=== PATIENT | female | born 1940 | race Caucasian/White ===

== ENCOUNTER 2016-09-15 15:15 | Outpatient (CLI) | payer MEDICARE, OTHER | END 2016-09-15 15:16 | disposition home or self-care (01) | DX: R41.3 Other amnesia (principal); N39.0 Urinary tract infection, site not specified ==

== ENCOUNTER 2016-09-16 15:32 | Outpatient (CLI) | payer MEDICARE, OTHER | END 2016-09-16 15:33 | disposition home or self-care (01) | DX: R41.3 Other amnesia (principal); I63.9 Cerebral infarction, unspecified; I67.82 Cerebral ischemia ==

== ENCOUNTER 2016-09-24 07:54 | Outpatient (CLI) | payer MEDICARE, OTHER | END 2016-09-24 07:55 | disposition home or self-care (01) | DX: I63.9 Cerebral infarction, unspecified (principal) ==

== ENCOUNTER 2016-09-24 11:17 | Outpatient (CLI) | payer MEDICARE, OTHER | END 2016-09-24 11:18 | disposition home or self-care (01) | DX: I63.9 Cerebral infarction, unspecified (principal) ==

== ENCOUNTER 2016-09-25 09:17 | Outpatient (CLI) | payer MEDICARE, OTHER | END 2016-09-25 09:18 | disposition home or self-care (01) | DX: I63.9 Cerebral infarction, unspecified (principal) ==

== ENCOUNTER 2016-12-26 09:13 | Outpatient (CLI) | payer MEDICARE, OTHER ==
[2016-12-26 08:07] LABS: CREATININE 0.7 mg/dL (0.4-1.0)
[2016-12-26] MEDS ORDERED: GADOBUTROL 10 MMOL/10 ML VIAL IVP ONE (10:58)
--- NOTE | 2016-12-26 12:48 | MRI Report ---
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 MR angiography has been requested in further workup of potential etio logy for the infarctions. TECHNIQUE: 1. T1 fat saturated axial sequence. 2. 2-D yrnw-ek-qkxjyq MR angiography. 3. 3-D gadolinium enhanced MRA angiography. 8 cc IV Gadavist. Significant arterial stenoses will be assessed using NASCET type measurements. COMPARISON: None. FINDINGS: There is normal branching of the aortic arch. No stenoses are identified in the first order , supra-aortic arteries. Right carotid artery: There is minimal irregularity in contour of distal common carotid artery, probably from atherosclerot ic plaque. No associated stenosis. Extracranial right ICA and right ECA appear widely patent. Left carotid artery: There is stenosis at the origin of the left ECA, probably from atherosclerotic disease. This appears to represent greater than 50% NASCET type stenosis and certainly could be hemodynamically significant . The extracranial left ICA appears widely patent throughout. Right vertebral artery: Patent from origin to the vertebrobasilar junction. No focal stenosis is demonstrated. Left vertebral artery: Dominant left vertebral artery appears widely patent from its origin to the vertebrobasilar junction without focal stenosis. There is some irregularity in the contour for the vertical limb of the V3 seg ment (see image #3 of series 603). The artery has a somewhat beaded appearance suggesting the possibi lity of fibromuscular dysplasia. However, no evidence of FMD in the right vertebral artery or either carotid artery. IMPRESSION: 1. There appears be relatively severe stenosis at the origin of the left external carotid artery, pro bably from atherosclerotic disease. The extracranial carotid arteries are otherwise unremarkable. 2. Irregularity in luminal contour for vertical limb of V3 segment, left vertebral artery. This sugge sts the possibility of fibromuscular dysplasia. No significant associated stenosis and no evidence of complicating dissection. The extracranial vertebral arteries are otherwise unremarkable. Referring Provider Line: [phone] SITE ID: [id number]
--- NOTE | 2016-12-26 12:48 | MRI Report ---
MR angiogram head without contrast INDICATION: 76-year-old female with history of infarctions in left occipital lobe and left parahippoc ampal gyrus in September of this year. MR angiography has been requested in further assessment. TECHNIQUE: 3-D azww-ia-csyjyl MR angiography. COMPARISON: None. FINDINGS: The patient had difficulty holding still for this examination. There is image degradation from patien t motion that decreases the diagnostic quality of the study. The internal carotid arteries appear widely patent bilaterally. No obvious ICA aneurysm is demonstrat ed. The A1 segments of the anterior cerebral arteries are codominant. There probably is a tiny anteri or communicating artery. There appears be good flow related enhancement in the imaged anterior cerebr al artery branches. The middle cerebral arteries are unremarkable. No aneurysm is demonstrated and there is no evidence o f occlusion or hemodynamically significant stenosis affecting main branches of either MCA. The vertebral arteries and left PICA are patent. No right PICA is seen. There is a large right AICA t hat appears to be supplying the right PICA territory (normal anatomical variant). The basilar artery, superior cerebellar arteries and posterior cerebral arteries appear patent. No obvious stenosis is i dentified in main branches of the left [employer]. Neither posterior communicating artery is identified with certainty. No aneurysms are seen arising from the basilar artery trunk or apex. IMPRESSION: 1. Motion limited examination. 2. However, allowing for the limitations of this study, no pathology is demonstrated. In particular, the left posterior cerebral artery appears patent without obvious stenosis. Referring Provider Line: [phone] SITE ID: [id number]
== END 2016-12-26 09:14 | disposition home or self-care (01) ==
LOC: DI 09:13
PROVIDERS: ATTEND Specialist
DX: I65.22 Occlusion and stenosis of left carotid artery (principal); I69.90 Unspecified sequelae of unspecified cerebrovascular disease; I77.89 Other specified disorders of arteries and arterioles
CPT/HCPCS: 36415; 70544; 70549; 82565; A9585

== ENCOUNTER 2017-01-12 07:56 | Outpatient (CLI) | payer MEDICARE, OTHER ==
[2017-01-12 10:48] LABS: ALBUMIN/GLOBULIN RATIO 1.6 (1.0-2.2); BILIRUBIN,TOTAL 1.3 mg/dL (0.2-1.0); BUN - BLOOD UREA NITROGEN 15 mg/dL (6-20); CALCIUM 9.1 mg/dL (8.5-10.3); CARBON DIOXIDE - CO2 27 mmol/L (21-32); CHLORIDE 106 mmol/L (101-111); CHOLESTEROL 172 mg/dL; CREATININE 0.8 mg/dL (0.4-1.0); GFR - MDRD 70 (>89); GLUCOSE 128 mg/dL (70-100); HDL CHOLESTEROL 85 mg/dL; LDL/HDL RATIO 0.8 (<4.4); POTASSIUM 4.1 mmol/L (3.5-5.0); SODIUM 140 mmol/L (135-145); TRIGLYCERIDES 76 mg/dL; VLDL CHOLESTEROL 15 mg/dL
== END 2017-01-12 07:57 | disposition home or self-care (01) ==
LOC: LAB 07:56
PROVIDERS: ATTEND Physician Assistant Medical
DX: I63.9 Cerebral infarction, unspecified (principal)
CPT/HCPCS: 36415; 80053; 80061

== ENCOUNTER 2017-03-23 14:20 | Outpatient (CLI) | payer MEDICARE, OTHER ==
[2017-03-23 19:19] LABS: ALBUMIN/GLOBULIN RATIO 1.8 (1.0-2.2); BILIRUBIN,TOTAL 0.9 mg/dL (0.2-1.0); BUN - BLOOD UREA NITROGEN 16 mg/dL (6-20); CALCIUM 9.3 mg/dL (8.5-10.3); CARBON DIOXIDE - CO2 28 mmol/L (21-32); CHLORIDE 103 mmol/L (101-111); CHOL/HDL RATIO 1.7 (<4.4); CHOLESTEROL 152 mg/dL; CREATININE 0.7 mg/dL (0.4-1.0); GFR - MDRD 81 (>89); GLUCOSE 103 mg/dL (70-100); HDL CHOLESTEROL 90 mg/dL; LDL/HDL RATIO 0.5 (<4.4); POTASSIUM 3.9 mmol/L (3.5-5.0); SODIUM 140 mmol/L (135-145); TRIGLYCERIDES 97 mg/dL; VLDL CHOLESTEROL 19 mg/dL
[2017-03-23 19:48] LABS: HEMOGLOBIN A1C 0.56 g/dL
== END 2017-03-23 14:21 | disposition home or self-care (01) ==
LOC: LAB.WCP 14:20
PROVIDERS: ATTEND Physician Assistant Medical
DX: R73.9 Hyperglycemia, unspecified (principal); I63.9 Cerebral infarction, unspecified
CPT/HCPCS: 36415; 80048; 80053; 80061; 83036

== ENCOUNTER 2017-05-11 13:40 | Outpatient (CLI) | payer MEDICARE, OTHER ==
--- NOTE | 2017-05-13 17:41 | Mammography Report ---
DIGITAL SCREENING LEFT MAMMOGRAM: 05/11/2017 CLINICAL INDICATION: A 76-year-old with personal history of right breast cancer status post mastecto my. TECHNIQUE: Left CC, MLO, laterally exaggerated craniocaudal views were obtained. COMPARISON: 05/2015, 03/2014, 03/2013, 04/2011, 04/2010. The left breast again demonstrates scattered fibroglandular densities. A few coarse, typically benig n calcifications are present. No suspicious masses, clustered microcalcifications, or regions of arc hitectural distortion are identified. IMPRESSION: BENIGN FINDINGS. RECOMMENDATION: ROUTINE ANNUAL SCREENING UNLESS OTHERWISE CLINICALLY INDICATED. BIRADS CATEGORY: 2, BENIGN FINDINGS. STANDARD QUALIFYING STATEMENTS 1. This examination was reviewed with the aid of Computed-Aided Detection (CAD). 2. A negative or benign imaging report should not delay biopsy if clinically suspicious findings are present. Consider surgical consultation if warranted. More than 5% of cancers are not identified b y imaging. 3. Dense breasts may obscure an underlying neoplasm. JOB #: [id number] EXT JOB #:[id number]
== END 2017-05-11 13:41 | disposition home or self-care (01) ==
LOC: DI.N 13:40
PROVIDERS: ATTEND Physician Assistant Medical
DX: Z12.31 Encounter for screening mammogram for malignant neoplasm of breast (principal); Z85.3 Personal history of malignant neoplasm of breast; Z90.11 Acquired absence of right breast and nipple

== ENCOUNTER 2017-09-29 07:28 | Outpatient (CLI) | payer MEDICARE, OTHER ==
[2017-09-29 13:11] LABS: ALBUMIN 4.4 g/dL (3.2-5.5); ALBUMIN/GLOBULIN RATIO 1.7 (1.0-2.2); ALKALINE PHOSPHATASE 65 IU/L (42-121); ALT ALANINE AMINOTRANSFERASE 15 IU/L (10-60); AST ASPARTATE AMINOTRANSFERASE 19 IU/L (10-42); BILIRUBIN,TOTAL 0.8 mg/dL (0.2-1.0); BUN - BLOOD UREA NITROGEN 12 mg/dL (6-20); CALCIUM 8.8 mg/dL (8.5-10.3); CARBON DIOXIDE - CO2 27 mmol/L (21-32); CHLORIDE 103 mmol/L (101-111); CHOLESTEROL 118 mg/dL; CREATININE 0.7 mg/dL (0.4-1.0); GFR - MDRD 81 (>89); GLUCOSE 113 mg/dL (70-100); HDL CHOLESTEROL 58 mg/dL; LDL CHOLESTEROL,CALCULATED 48 mg/dL; LDL/HDL RATIO 0.8 (<4.4); SODIUM 135 mmol/L (135-145); VLDL CHOLESTEROL 12 mg/dL
== END 2017-09-29 07:29 | disposition home or self-care (01) ==
LOC: LAB.WCP 07:28
PROVIDERS: ATTEND Physician Assistant Medical
DX: I63.9 Cerebral infarction, unspecified (principal)
CPT/HCPCS: 36415; 80053; 80061; 83721

== ENCOUNTER 2017-12-08 06:30 | Outpatient (CLI) | payer MEDICARE, OTHER | END 2017-12-08 06:31 | disposition home or self-care (01) | LOC: LAB.WCP 06:30 | PROVIDERS: ATTEND Family Medicine | DX: R19.7 Diarrhea, unspecified (principal) | CPT/HCPCS: 81599; 83630; 87045; 87046; 87493 ==

== ENCOUNTER 2017-12-09 08:00 | Outpatient (CLI) | payer MEDICARE, OTHER | END 2017-12-09 08:01 | disposition home or self-care (01) | LOC: LAB.WCP 08:00 | PROVIDERS: ATTEND Family Medicine | DX: R19.7 Diarrhea, unspecified (principal) | CPT/HCPCS: 81599; 87045; 87046; 87329 ==

== ENCOUNTER 2017-12-21 12:46 | Outpatient (CLI) | payer MEDICARE, OTHER ==
[2017-12-21] MEDS ORDERED: GADOBUTROL 10 MMOL/10 ML VIAL ONE (13:06)
[2017-12-21] MEDS ORDERED: GADOBUTROL 10 MMOL/10 ML VIAL IVP ONE (13:49)
--- NOTE | 2017-12-22 07:47 | MRI Report ---
Procedure Date: 12/21/2017 Accession Number: [id number] / [id number] Procedure: MRI - Brain W/WO CPT Code: FULL RESULT: EXAM: MRI BRAIN WITHOUT AND WITH CONTRAST EXAM DATE: 12/21/2017 02:00 PM. CLINICAL HISTORY: History of memory deficit and CVA. History also of TIA. COMPARISON: 09/16/2016. TECHNIQUE: Multiplanar, multisequence T1-weighted and fluid-sensitive MR sequences of the brain were performed. Sequences optimized for routine evaluation. Other: None. IV Contrast: Without and with 8 mL Gadavist. FINDINGS: Brain Volume: Stable kcrh-yx-ljnsdtop generalized age-related cerebral volume loss. Parenchyma: No restricted diffusion to suggest acute or recent ischemic infarct. No cerebral hemorrhage, mass effect, midline shift or abnormal subdural fluid collection. Contrast opacification of the major dural venous sinuses is present as expected. No intracranial enhancing or space occupying mass or nodule. Stable mild multifocal chronic cerebral white matter disease consistent with small vessel ischemic changes. A small amount of encephalomalacia and gliosis is now present in the inferomedial left temporal lobe and more posterior temporal-occipital white matter where infarct was present on the previous study. Stable chronic very small old inferior left cerebellar infarct. Ventricles/Cisterns: Stable mild ventriculomegaly consistent with cerebral volume loss, no evidence for developing hydrocephalus. Orbits: Symmetric and unremarkable. Sella Turcica: Stable appearance, concave superior pituitary surface, no evidence for pituitary region enhancing or space-occupying mass. IAC: Symmetric and unremarkable. Vasculature: Normal signal flow void is seen in the major arterial structures at the skull base. The dural sinuses are patent and enhance normally. Sinuses: Stable mild nonspecific potentially chronic paranasal sinus mucosal thickening. Bones: No focal pathologic appearing marrow signal changes in the skull or clivus. Other: None. IMPRESSION: 1. No new or acute intracranial abnormality. 2. No enhancing mass. 3. Chronic appearing sequelae of multifocal ischemic brain disease. RADIA
== END 2017-12-21 12:47 | disposition home or self-care (01) ==
LOC: DI 12:46
PROVIDERS: ATTEND Family Medicine
DX: I63.9 Cerebral infarction, unspecified (principal); R41.3 Other amnesia; I67.82 Cerebral ischemia
CPT/HCPCS: 70553; 93306; A9585

== ENCOUNTER 2018-11-16 07:26 | Outpatient (CLI) | payer MEDICARE, OTHER ==
[2018-11-16 12:33] LABS: ALBUMIN 4.2 g/dL (3.2-5.5); ALBUMIN/GLOBULIN RATIO 1.6 (1.0-2.2); ALKALINE PHOSPHATASE 65 IU/L (42-121); ALT ALANINE AMINOTRANSFERASE 19 IU/L (10-60); AST ASPARTATE AMINOTRANSFERASE 18 IU/L (10-42); BILIRUBIN,TOTAL 1.1 mg/dL (0.2-1.0); BUN - BLOOD UREA NITROGEN 16 mg/dL (6-20); CALCIUM 8.9 mg/dL (8.5-10.3); CARBON DIOXIDE - CO2 25 mmol/L (21-32); CHLORIDE 103 mmol/L (101-111); CHOL/HDL RATIO 1.8 (<4.4); CHOLESTEROL 156 mg/dL; CREATININE 0.7 mg/dL (0.4-1.0); GFR - MDRD 81 (>89); GLUCOSE 153 mg/dL (70-100); HDL CHOLESTEROL 86 mg/dL; LDL CHOLESTEROL,CALCULATED 59 mg/dL; LDL/HDL RATIO 0.7 (<4.4); SODIUM 138 mmol/L (135-145); TOTAL PROTEIN 6.8 g/dL (6.7-8.2); VLDL CHOLESTEROL 11 mg/dL
[2018-11-16 12:35] LABS: BASOPHILS % (AUTO) 0.8 %; EOSINOPHILS # (AUTO) 0.2 10^3/uL (0.0-0.7); EOSINOPHILS % (AUTO) 3.8 %; HGB - HEMOGLOBIN 14.5 g/dL (12.0-16.0); LYMPHOCYTES # (AUTO) 1.1 10^3/uL (1.5-3.5); LYMPHOCYTES % (AUTO) 22.6 %; MEAN CORPUSCULAR HEMOGLOBIN 29.9 pg (27.0-31.0); MEAN CORPUSCULAR HGB CONC 33.6 g/dL (32.0-36.0); MEAN PLATELET VOLUME 9.1 fL (7.9-10.8); MONOCYTES # (AUTO) 0.3 10^3/uL (0.0-1.0); MONOCYTES % (AUTO) 6.7 %; NEUTROPHILS # (AUTO) 3.3 10^3/uL (1.5-6.6); NEUTROPHILS % (AUTO) 66.1 %; PLT - PLATELET COUNT 176 10^3/uL (130-450); RED BLOOD COUNT 4.85 10^6/uL (4.20-5.40); RED CELL DISTRIBUTION WIDTH 13.2 % (12.0-15.0)
[2018-11-19 07:20] LABS: HB2 TOTAL 15.8 g/dL; HEMOGLOBIN A1C 0.71 g/dL; HEMOGLOBIN A1C % 6.3 % (4.6-6.2)
== END 2018-11-16 07:27 | disposition home or self-care (01) ==
LOC: LAB.WCP 07:26
PROVIDERS: ATTEND Physician Assistant Medical
DX: I63.9 Cerebral infarction, unspecified (principal); R73.9 Hyperglycemia, unspecified
CPT/HCPCS: 36415; 80053; 80061; 83036; 83721; 85025

== ENCOUNTER 2018-12-02 08:00 | Outpatient (CLI) | payer MEDICARE, OTHER ==
[2018-12-02 19:55] LABS: HB2 TOTAL 13.8 g/dL; HEMOGLOBIN A1C 0.58 g/dL
== END 2018-12-02 23:59 | disposition home or self-care (01) ==
LOC: LAB.WCP 08:00
PROVIDERS: ATTEND Physician Assistant Medical
DX: R73.9 Hyperglycemia, unspecified (principal)
CPT/HCPCS: 36415; 83036

== ENCOUNTER 2018-12-28 13:24 | Outpatient (CLI) | payer MEDICARE, OTHER ==
--- NOTE | 2018-12-29 08:24 | Mammography Report ---
Reason: SCREENING MAMMO Procedure Date: 12/28/2018 Accession Number: [id number] / [id number] Procedure: MGN - Screening Mammo Dig LT CPT Code: FULL RESULT: EXAM: Screening Mammo Dig LT DATE: 12/28/2018 1:49 PM CLINICAL HISTORY: Screening examination. Personal history of breast cancer status post right mastectomy in 1998. Family history of breast cancer in a maternal grandmother at the age of 60. TECHNIQUE: (L) - Left CC and MLO views were obtained. COMPARISON: 05/11/2017 through 03/21/2013. PARENCHYMAL PATTERN: (A) - The breast(s) demonstrate(s) scattered fibroglandular densities. FINDINGS: There are no suspicious masses, calcifications, or areas of distortion. IMPRESSION: Negative examination. BI-RADS category 1. RECOMMENDATION: (ANNUAL) - Recommend routine annual screening mammography. BI-RADS CATEGORY: (1) - Negative. STANDARD QUALIFYING STATEMENTS: 1. This examination was not reviewed with the aid of Computer-Aided Detection (CAD). 2. A negative or benign imaging report should not preclude biopsy if clinically suspicious findings are present. 3. Dense breasts may obscure an underlying neoplasm. 4. This examination was reviewed without the aid of 3D breast imaging (tomosynthesis).
== END 2018-12-28 13:25 | disposition home or self-care (01) ==
LOC: DI.N 13:24
DX: Z12.31 Encounter for screening mammogram for malignant neoplasm of breast (principal); Z85.3 Personal history of malignant neoplasm of breast; Z90.11 Acquired absence of right breast and nipple; Z80.3 Family history of malignant neoplasm of breast

== ENCOUNTER 2019-10-18 07:22 | Outpatient (CLI) | payer MEDICARE, OTHER ==
[2019-10-18 13:35] LABS: BUN - BLOOD UREA NITROGEN 19 mg/dL (6-20); CALCIUM 8.2 mg/dL (8.5-10.3); CARBON DIOXIDE - CO2 22 mmol/L (21-32); CHLORIDE 108 mmol/L (101-111); CHOLESTEROL 129 mg/dL; CREATININE 0.8 mg/dL (0.4-1.0); GLUCOSE 140 mg/dL (70-100); HB2 TOTAL 14.3 g/dL; HDL CHOLESTEROL 66 mg/dL; HEMOGLOBIN A1C 0.55 g/dL; HEMOGLOBIN A1C % 5.7 % (4.6-6.2); LDL CHOLESTEROL,CALCULATED 53 mg/dL; LDL/HDL RATIO 0.8 (<4.4); SODIUM 138 mmol/L (135-145); VLDL CHOLESTEROL 10 mg/dL
== END 2019-10-18 23:59 | disposition home or self-care (01) ==
LOC: LAB.WCP 07:22
PROVIDERS: ATTEND Physician Assistant Medical
DX: I10 Essential (primary) hypertension (principal); R73.9 Hyperglycemia, unspecified
CPT/HCPCS: 36415; 80048; 80061; 83036; 83721

== ENCOUNTER 2020-02-17 14:31 | Outpatient (CLI) | payer MEDICARE, OTHER ==
--- NOTE | 2020-02-22 10:01 | Mammography Report ---
UNILATERAL LEFT DIGITAL SCREENING MAMMOGRAM 3D/2D: 02/17/2020 CLINICAL: Routine screening. Comparison is made to exams dated: 12/28/2018 mammogram, 05/11/2017 mammogram, 03/29/2014 mammogram, and 06/22/2014 ultrasound - [facility]. There are scattered fibroglandular elements in left breast. No significant masses, calcifications, or other findings are seen in the breast. IMPRESSION: NEGATIVE There is no mammographic evidence of malignancy. A 1 year screening mammogram is recommended. This exam was interpreted at Station ID: [id number]. NOTE: For mammograms, a report in lay terms will be sent to the patient. Approximately 15% of breast malignancies will not be visualized mammographically. In the management of a palpable breast mass, a negative mammogram must not discourage biopsy of a clinically suspicious lesion. Electronically Signed By: Jai Amador M.D., jr/kyung:02/22/2020 09:37:32 ACR BI-RADS Category 1: Negative 3341F PARENCHYMAL PATTERN: (A) - The breast(s) demonstrate(s) scattered fibroglandular densities. BI-RADS CATEGORY: (1) - 1 RECOMMENDATION: (ANNUAL) - Recommend routine annual screening mammography. [id number] 1 year screening LATERALITY: (B)
== END 2020-02-17 14:32 | disposition home or self-care (01) ==
LOC: DI.N 14:31
DX: Z12.31 Encounter for screening mammogram for malignant neoplasm of breast (principal)
CPT/HCPCS: 77063

== ENCOUNTER 2020-04-09 08:00 | Outpatient (CLI) | payer MEDICARE, OTHER ==
[2020-04-09 13:05] LABS: ALBUMIN 4.2 g/dL (3.2-5.5); ALBUMIN/GLOBULIN RATIO 1.6 (1.0-2.2); ALKALINE PHOSPHATASE 58 IU/L (42-121); ALT ALANINE AMINOTRANSFERASE 18 IU/L (10-60); AST ASPARTATE AMINOTRANSFERASE 20 IU/L (10-42); BUN - BLOOD UREA NITROGEN < 5 mg/dL (6-20); CALCIUM 8.7 mg/dL (8.5-10.3); CARBON DIOXIDE - CO2 25 mmol/L (21-32); CHLORIDE 98 mmol/L (101-111); CHOL/HDL RATIO 1.8 (<4.4); CHOLESTEROL 137 mg/dL; CREATININE 0.6 mg/dL (0.4-1.0); GLUCOSE 137 mg/dL (70-100); HDL CHOLESTEROL 76 mg/dL; LDL CHOLESTEROL,CALCULATED 49 mg/dL; LDL/HDL RATIO 0.6 (<4.4); SODIUM 132 mmol/L (135-145); TOTAL PROTEIN 6.8 g/dL (6.7-8.2); VLDL CHOLESTEROL 12 mg/dL
[2020-04-09 13:18] LABS: HEMOGLOBIN A1c% 5.7 % (4.27-6.07)
== END 2020-04-09 23:59 | disposition home or self-care (01) ==
LOC: LAB.WCP 08:00
PROVIDERS: ATTEND Physician Assistant Medical
DX: R73.9 Hyperglycemia, unspecified (principal); I10 Essential (primary) hypertension
CPT/HCPCS: 36415; 80053; 80061; 83036; 83721

== ENCOUNTER 2020-04-19 12:11 | Outpatient (CLI) | payer MEDICARE, OTHER ==
--- NOTE | 2020-04-19 16:21 | DEXA Report ---
PROCEDURE: Dexa Spine and/or Hip INDICATIONS: POST MENOPAUSAL TECHNIQUE: Dual energy x-ray absorptiometry (DXA) was performed on a [employer] System. Regions measur ed are the AP Spine, femoral neck, and if needed forearm. COMPARISON: 12/10/2015. FINDINGS: Lumbar Spine: Bone Mineral Density 0.922 g/cm/cm,T score -2.1, osteopenia Left Hip: Bone Mineral Density 0.795 g/cm/cm,T score -1.7, osteopenia Left Femoral Neck: Bone Mineral Density 0.773 g/cm/cm, T score -1.9, osteopenia (T score greater or equal to -1.0: NORMAL) (T score from -1.1 to -2.4: OSTEOPENIA) (T score less than or equal to -2.5 to: OSTEOPOROSIS) Impression: Osteopenia. Bone marrow density has decreased 2.1% in the interval since prior exam. Patients with diagnosis of osteoporosis or osteopenia should have regular bone mineral density assess ment. For those eligible for Medicare, routine testing is allowed once every 2 years. Testing frequ ency can be increased for patients who have rapidly progressing disease or for those who are receivin g medical therapy to restore bone mass. Reviewed by: Ellen Benitez MD, PhD on 04/19/2020 4:19 PM PST Approved by: Ellen Benitez MD, PhD on 04/19/2020 4:19 PM PST Station ID: [id number]
== END 2020-04-19 12:12 | disposition home or self-care (01) ==
LOC: DI 12:11
PROVIDERS: ATTEND Physician Assistant Medical
DX: M85.89 Other specified disorders of bone density and structure, multiple sites (principal)
CPT/HCPCS: 77080

== ENCOUNTER 2020-10-19 08:00 | Outpatient (CLI) | payer MEDICARE, OTHER ==
[2020-10-19 12:29] LABS: BASOPHILS % (AUTO) 0.4 %; EOSINOPHILS # (AUTO) 0.2 10^3/uL (0.0-0.7); EOSINOPHILS % (AUTO) 3.3 %; HCT - HEMATOCRIT 40.6 % (37.0-47.0); HGB - HEMOGLOBIN 13.5 g/dL (12.0-16.0); LYMPHOCYTES # (AUTO) 1.1 10^3/uL (1.5-3.5); LYMPHOCYTES % (AUTO) 21.8 %; MEAN CORPUSCULAR HGB CONC 33.3 g/dL (32.0-36.0); MEAN CORPUSCULAR VOLUME 90.2 fL (81.0-99.0); MEAN PLATELET VOLUME 11.1 fL (7.9-10.8); MONOCYTES # (AUTO) 0.3 10^3/uL (0.0-1.0); MONOCYTES % (AUTO) 6.1 %; NEUTROPHILS # (AUTO) 3.3 10^3/uL (1.5-6.6); PLT - PLATELET COUNT 197 10^3/uL (130-450); RED CELL DISTRIBUTION WIDTH 12.4 % (12.0-15.0); WHITE BLOOD COUNT 4.9 x10^3/uL (4.8-10.8)
[2020-10-19 13:29] LABS: ALBUMIN 4.5 g/dL (3.2-5.5); ALKALINE PHOSPHATASE 41 IU/L (42-121); ALT ALANINE AMINOTRANSFERASE 16 IU/L (10-60); AST ASPARTATE AMINOTRANSFERASE 18 IU/L (10-42); BUN - BLOOD UREA NITROGEN 16 mg/dL (6-20); CALCIUM 9.2 mg/dL (8.5-10.3); CARBON DIOXIDE - CO2 26 mmol/L (21-32); CHLORIDE 104 mmol/L (101-111); CHOL/HDL RATIO 1.9 (<4.4); CHOLESTEROL 137 mg/dL; CREATININE 0.6 mg/dL (0.4-1.0); GFR - MDRD 96 (>89); GLUCOSE 146 mg/dL (70-100); HDL CHOLESTEROL 71 mg/dL; LDL CHOLESTEROL,CALCULATED 51 mg/dL; LDL/HDL RATIO 0.7 (<4.4); POTASSIUM 4.5 mmol/L (3.5-5.0); SODIUM 139 mmol/L (135-145); TOTAL PROTEIN 6.8 g/dL (6.7-8.2); TRIGLYCERIDES 76 mg/dL; VLDL CHOLESTEROL 15 mg/dL
[2020-10-19 21:01] LABS: ESTIMATED AVERAGE GLUCOSE 117 mg/dL (70-100); HEMOGLOBIN A1c% 5.7 % (4.27-6.07)
== END 2020-10-19 08:01 | disposition home or self-care (01) ==
LOC: LAB.WCP 08:00
PROVIDERS: ATTEND Physician Assistant Medical
DX: I63.9 Cerebral infarction, unspecified (principal); R73.9 Hyperglycemia, unspecified; I10 Essential (primary) hypertension
CPT/HCPCS: 36415; 80053; 80061; 83036; 83721; 85025

== ENCOUNTER 2021-02-13 14:49 | Outpatient (CLI) | payer MEDICARE, OTHER ==
--- NOTE | 2021-02-14 15:16 | Mammography Report ---
UNILATERAL LEFT DIGITAL SCREENING MAMMOGRAM 3D/2D: 02/13/2021 CLINICAL: Routine screening. Personal history of right breast cancer. Comparison is made to exams dated: 02/17/2020 mammogram, 12/28/2018 mammogram, 05/11/2017 mammogram, mammogram, 06/22/2014 ultrasound, and 03/29/2014 mammogram - [facility]. The re are scattered fibroglandular elements in left breast. No significant masses, calcifications, or other findings are seen in the breast. There has been no significant interval change. IMPRESSION: NEGATIVE There is no mammographic evidence of malignancy. A 1 year screening mammogram is recommended. This exam was interpreted at Station ID: [id number]. NOTE: For mammograms, a report in lay terms will be sent to the patient. Approximately 15% of breast malignancies will not be visualized mammographically. In the management of a palpable breast mass, a negative mammogram must not discourage biopsy of a clinically suspicious lesion. Electronically Signed By: Nikki jean/kyung:02/13/2021 16:22:20 ACR BI-RADS Category 1: Negative 3341F PARENCHYMAL PATTERN: (A) - The breast(s) demonstrate(s) scattered fibroglandular densities. BI-RADS CATEGORY: (1) - 1 RECOMMENDATION: (ANNUAL) - Recommend routine annual screening mammography. [id number] 1 year screening LATERALITY: (B)
== END 2021-02-13 14:50 | disposition home or self-care (01) ==
LOC: DI.N 14:49
DX: Z12.31 Encounter for screening mammogram for malignant neoplasm of breast (principal); Z85.3 Personal history of malignant neoplasm of breast

== ENCOUNTER 2021-04-17 08:00 | Outpatient (CLI) | payer MEDICARE, OTHER ==
[2021-04-17 12:14] LABS: BASOPHILS # (AUTO) 0.1 10^3/uL (0.0-0.1); BASOPHILS % (AUTO) 1.1 %; EOSINOPHILS # (AUTO) 0.3 10^3/uL (0.0-0.7); EOSINOPHILS % (AUTO) 5.3 %; HGB - HEMOGLOBIN 12.7 g/dL (12.0-16.0); LYMPHOCYTES # (AUTO) 1.1 10^3/uL (1.5-3.5); LYMPHOCYTES % (AUTO) 23.7 %; MEAN CORPUSCULAR HEMOGLOBIN 30.5 pg (27.0-31.0); MEAN CORPUSCULAR HGB CONC 32.6 g/dL (32.0-36.0); MEAN CORPUSCULAR VOLUME 93.5 fL (81.0-99.0); MEAN PLATELET VOLUME 10.2 fL (7.9-10.8); MONOCYTES # (AUTO) 0.4 10^3/uL (0.0-1.0); MONOCYTES % (AUTO) 8.3 %; NEUTROPHILS # (AUTO) 2.9 10^3/uL (1.5-6.6); NEUTROPHILS % (AUTO) 61.2 %; PLT - PLATELET COUNT 212 10^3/uL (130-450); RED BLOOD COUNT 4.17 10^6/uL (4.20-5.40); RED CELL DISTRIBUTION WIDTH 12.3 % (12.0-15.0); WHITE BLOOD COUNT 4.7 x10^3/uL (4.8-10.8)
[2021-04-17 12:57] LABS: ALBUMIN 4.1 g/dL (3.2-5.5); ALBUMIN/GLOBULIN RATIO 1.6 (1.0-2.2); BILIRUBIN,TOTAL 1.3 mg/dL (0.2-1.0); CALCIUM 8.5 mg/dL (8.5-10.3); CREATININE 0.5 mg/dL (0.4-1.0); POTASSIUM 4.2 mmol/L (3.5-5.0); TOTAL PROTEIN 6.7 g/dL (6.7-8.2)
[2021-04-17 13:52] LABS: ESTIMATED AVERAGE GLUCOSE 123 mg/dL (70-100); HEMOGLOBIN A1c% 5.9 % (4.27-6.07)
== END 2021-04-17 23:59 | disposition home or self-care (01) ==
LOC: LAB.WCP 08:00
PROVIDERS: ATTEND Physician Assistant Medical
DX: R41.3 Other amnesia (principal); R73.9 Hyperglycemia, unspecified
CPT/HCPCS: 36415; 80053; 82607; 83036; 85025

== ENCOUNTER 2021-10-16 07:06 | Outpatient (CLI) | payer MEDICARE, OTHER ==
[2021-10-16 12:00] LABS: ALBUMIN/GLOBULIN RATIO 1.3 (1.0-2.2); ALKALINE PHOSPHATASE 52 IU/L (42-121); ALT ALANINE AMINOTRANSFERASE 20 IU/L (10-60); AST ASPARTATE AMINOTRANSFERASE 19 IU/L (10-42); BUN - BLOOD UREA NITROGEN 15 mg/dL (6-20); CARBON DIOXIDE - CO2 27 mmol/L (21-32); CHLORIDE 99 mmol/L (101-111); CHOL/HDL RATIO 1.8 (<4.4); CHOLESTEROL 150 mg/dL; CREATININE 0.7 mg/dL (0.4-1.0); GFR - MDRD 80 (>89); GLUCOSE 145 mg/dL (70-100); HDL CHOLESTEROL 85 mg/dL; LDL CHOLESTEROL,CALCULATED 50 mg/dL; LDL/HDL RATIO 0.6 (<4.4); POTASSIUM 4.7 mmol/L (3.5-5.0); SODIUM 136 mmol/L (135-145); TRIGLYCERIDES 76 mg/dL; VLDL CHOLESTEROL 15 mg/dL
[2021-10-16 12:44] LABS: ESTIMATED AVERAGE GLUCOSE 126 mg/dL (70-100)
== END 2021-10-16 07:07 | disposition home or self-care (01) ==
LOC: LAB.N 07:06
PROVIDERS: ATTEND Physician Assistant Medical
DX: I63.9 Cerebral infarction, unspecified (principal); R73.9 Hyperglycemia, unspecified
CPT/HCPCS: 36415; 80053; 80061; 83036; 83721

== ENCOUNTER 2022-12-29 10:55 | Outpatient (CLI) | payer MEDICARE, OTHER ==
--- NOTE | 2022-12-30 09:46 | Mammography Report ---
UNILATERAL LEFT DIGITAL SCREENING MAMMOGRAM 3D/2D: 12/29/2022 CLINICAL: Routine screening. Personal history of right breast cancer. Comparison is made to exams dated: 02/13/2021 mammogram, 02/17/2020 mammogram, and 12/28/2018 mammogram - [facility]. There are scattered areas of fibroglandular density in the left breast (category b / 25%-50% glandula r tissue). There are stable benign calcifications in the left breast. No significant masses, calcifications, or other findings are seen in the breast. There has been no significant interval change. IMPRESSION: BENIGN There is no mammographic evidence of malignancy. A 1 year screening mammogram is recommended. This exam was interpreted at Station ID: [id number]. NOTE: For mammograms, a report in lay terms will be sent to the patient. Approximately 15% of breast malignancies will not be visualized mammographically. In the management of a palpable breast mass, a negative mammogram must not discourage biopsy of a clinically suspicious lesion. Electronically Signed By: Florian buenrostro/kyung:12/29/2022 15:22:19 letter sent: No_Letter ACR BI-RADS Category 2: Benign Finding(s) 3342F PARENCHYMAL PATTERN: (A) - The breast(s) demonstrate(s) scattered fibroglandular densities. BI-RADS CATEGORY: (2) - 2 Mammogram [id number] 1 year screening LATERALITY: (B)
== END 2022-12-29 10:56 | disposition home or self-care (01) ==
LOC: DI.N 10:55
DX: Z12.31 Encounter for screening mammogram for malignant neoplasm of breast (principal); Z85.3 Personal history of malignant neoplasm of breast

== ENCOUNTER 2023-06-09 08:00 | Outpatient (CLI) | payer MEDICARE, OTHER | END 2023-06-09 23:59 | disposition home or self-care (01) | LOC: LAB.WCP 08:00 | PROVIDERS: ATTEND Physician Assistant Medical | DX: N39.0 Urinary tract infection, site not specified (principal) | CPT/HCPCS: 87077; 87086; 87181 ==

== ENCOUNTER 2023-06-10 07:31 | Outpatient (CLI) | payer MEDICARE, OTHER ==
[2023-06-10 12:14] LABS: ESTIMATED AVERAGE GLUCOSE 134 mg/dL (70-100); HEMOGLOBIN A1c% 6.3 % (4.27-6.07)
[2023-06-10 12:21] LABS: ALBUMIN 4.5 g/dL (3.2-5.5); ALBUMIN/GLOBULIN RATIO 2.1 (1.0-2.2); ALKALINE PHOSPHATASE 55 IU/L (42-121); ALT ALANINE AMINOTRANSFERASE 17 IU/L (10-60); AST ASPARTATE AMINOTRANSFERASE 18 IU/L (10-42); BILIRUBIN,TOTAL 1.1 mg/dL (0.2-1.0); BUN - BLOOD UREA NITROGEN 11 mg/dL (6-20); CALCIUM 9.1 mg/dL (8.5-10.3); CARBON DIOXIDE - CO2 26 mmol/L (21-32); CHLORIDE 97 mmol/L (101-111); CHOL/HDL RATIO 1.7 (<4.4); CHOLESTEROL 133 mg/dL; CREATININE 0.7 mg/dL (0.6-1.3); GFR - MDRD 80 (>89); GLUCOSE 153 mg/dL (74-104); HDL CHOLESTEROL 77 mg/dL; LDL CHOLESTEROL,CALCULATED 38 mg/dL; LDL/HDL RATIO 0.5 (<4.4); POTASSIUM 4.4 mmol/L (3.5-4.5); SODIUM 129 mmol/L (135-145); TOTAL PROTEIN 6.6 g/dL (6.4-8.9); TRIGLYCERIDES 88 mg/dL (48-352); VLDL CHOLESTEROL 18 mg/dL
== END 2023-06-10 07:32 | disposition home or self-care (01) ==
LOC: LAB.N 07:31
PROVIDERS: ATTEND Physician Assistant Medical
DX: R73.9 Hyperglycemia, unspecified (principal); I63.9 Cerebral infarction, unspecified; N39.0 Urinary tract infection, site not specified
CPT/HCPCS: 36415; 80053; 80061; 83036; 83721

== ENCOUNTER 2023-12-08 07:17 | Outpatient (CLI) | payer MEDICARE, OTHER ==
[2023-12-08 12:37] LABS: CALCIUM 9.8 mg/dL (8.5-10.3); CREATININE 0.7 mg/dL (0.6-1.3); POTASSIUM 4.4 mmol/L (3.5-4.5)
[2023-12-08 12:48] LABS: ESTIMATED AVERAGE GLUCOSE 126 mg/dL (70-100)
== END 2023-12-08 07:18 | disposition home or self-care (01) ==
LOC: LAB.N 07:17
PROVIDERS: ATTEND Physician Assistant Medical
DX: R73.9 Hyperglycemia, unspecified (principal)
CPT/HCPCS: 36415; 80048; 83036